=== PATIENT | male | born 1975 | race African-American/Black ===

== ENCOUNTER 2018-09-30 18:29 | Inpatient (IN) ==
[2018-09-30 19:13] LABS: Basophils # 0.1 10*3/uL (0.0-0.2); Basophils % 0.7 % (0.0-0.8); Eosinophils # 0.1 10*3/uL (0.0-0.87); Eosinophils % 1.1 % (0.00-10.9); Hematocrit 39.2 VOL% (42.0-52.0); Immature Granulocytes % 0.4 %; Immature Granulocytes Absolute 0.03 #; Lymphocytes % 24.4 % (21.2-54.2); Mean Corpuscular HGB Conc 33.2 GM/DL (32-36); Mean Corpuscular Volume 83.6 FL (87-102); Mean Platelet Volume 11.1 FL (9.6-12.0); Monocytes % 7.4 % (1.7-12.7); Platelet Count 262 T/CUMM (130-400); Red Blood Count 4.69 MC/CUMM (3.8-5.5); Red Cell Distribution Width 13.3 % (9.3-17.3); White Blood Count 8.3 T/CUMM (4-12)
[2018-09-30 19:31] LABS: Albumin 3.5 G/DL (3.4-5.0); Calcium 9.2 MG/DL (8.5-10.1); Osmolality,Calculated 294.5 MOS/KG (273-304); Total Protein 7.3 G/DL (6.4-8.3)
[2018-09-30] MEDS ORDERED: FUROSEMIDE 40 MG/4 ML VIAL IV STA (19:35)
[2018-09-30] MEDS ORDERED: DEXTROSE 50% 25 GM/50 ML SYRINGE IV PRN (21:48)
[2018-09-30] MEDS ORDERED: GLUCAGON 1 MG VIAL IM PRN (21:48)
[2018-09-30] MEDS ORDERED: SODIUM CHLORIDE 0.9% 1,000 ML IV SCH (22:00)
[2018-09-30] MEDS ORDERED: CETIRIZINE 10 MG TABLET PO PRN (22:26)
[2018-09-30] MEDS: ENOXAPARIN 30 MG/0.3 ML SYRINGE SUBCUT SCH (22:59)
[2018-09-30] MEDS: ATORVASTATIN 40 MG TABLET PO SCH (23:58)
[2018-10-01] MEDS: LEVALBUTEROL 1.25 MG/3 ML NEB RESP TX SCH ×4 (00:25→20:38)
[2018-10-01] MEDS: POTASSIUM CHLORIDE 20 MEQ TABLET PO PRN ×6 (01:08→21:36)
[2018-10-01] MEDS: CARVEDILOL 12.5 MG TABLET PO SCH ×3 (02:25→16:03)
[2018-10-01 07:44] LABS: Albumin 2.9 G/DL (3.4-5.0); Bilirubin,Total 0.7 MG/DL (0.2-1.0); Calcium 8.3 MG/DL (8.5-10.1); Osmolality,Calculated 295.8 MOS/KG (273-304); Risk Ratio 5.09; Total Protein 6.3 G/DL (6.4-8.3); VLDL CHOLESTEROL 102.6 MG/DL
[2018-10-01] MEDS ORDERED: CARVEDILOL 12.5 MG TABLET PO SCH (08:00)
[2018-10-01] MEDS: BUMETANIDE 1 MG TABLET PO SCH ×2 (08:37→21:05)
[2018-10-01] MEDS: glipiZIDE 10 MG TABLET PO SCH ×3 (08:37→16:02)
[2018-10-01] MEDS: MINOXIDIL 2.5 MG TABLET PO SCH ×2 (08:38→08:41)
[2018-10-01] MEDS: INSULIN REGULAR 100 UNIT/ML SUBCUT SCH ×4 (08:46→21:04)
[2018-10-01] MEDS ORDERED: Acarbose 100 MG PO SCH (09:00)
[2018-10-01] MEDS ORDERED: LOSARTAN/HCTZ 50-12.5 MG TABLET PO SCH (09:00)
[2018-10-01 16:29] LABS: Apearance,Urine Slightly Hazy (Clear); Bacteria,Urine Occasional /HPF (Few); Bilirubin,Urine Negative (Negative); Blood, Urine Negative (Negative); Glucose,Urine (UA) 50 mg/dL (Negative); Hyaline Casts,Urine 57 /LPF (0-3); Ketones,Urine Negative (Negative); Mucus,Urine Occasional /LPF (Occasional); Nitrite,Urine Negative (Negative); Protein,Urine >=500 MG/DL; RBC,Urine 1 /HPF (0-4); Squamous Epithelial Cell,Urine Occasional /HPF (0-10); Urine Color Yellow (Yellow); Urine Specific Gravity 1.015 (1.001-1.035); Urine Urobilinogen < 2.0 EU/DL (0.2-1.0); WBC,Urine 8 /HPF (0-6)
[2018-10-01] MEDS: ENOXAPARIN 30 MG/0.3 ML SYRINGE SUBCUT SCH (21:04)
[2018-10-01] MEDS: ATORVASTATIN 40 MG TABLET PO SCH (21:05)
[2018-10-02] MEDS: LEVALBUTEROL 1.25 MG/3 ML NEB RESP TX SCH ×4 (02:31→19:59)
[2018-10-02 05:03] LABS: Calcium 8.3 MG/DL (8.5-10.1); Osmolality,Calculated 294.7 MOS/KG (273-304)
[2018-10-02] MEDS: POTASSIUM CHLORIDE 20 MEQ TABLET PO PRN ×2 (06:17→08:59)
[2018-10-02] MEDS: BUMETANIDE 1 MG TABLET PO SCH ×2 (08:58→21:34)
[2018-10-02] MEDS: INSULIN REGULAR 100 UNIT/ML SUBCUT SCH ×4 (08:58→21:33)
[2018-10-02] MEDS: CARVEDILOL 12.5 MG TABLET PO SCH ×2 (08:59→17:08)
[2018-10-02] MEDS: glipiZIDE 10 MG TABLET PO SCH ×3 (08:59→17:08)
[2018-10-02] MEDS: ENOXAPARIN 30 MG/0.3 ML SYRINGE SUBCUT SCH (21:33)
[2018-10-02] MEDS: ATORVASTATIN 40 MG TABLET PO SCH (21:34)
[2018-10-03] MEDS: LEVALBUTEROL 1.25 MG/3 ML NEB RESP TX SCH ×2 (01:54→07:46)
[2018-10-03 06:06] LABS: Calcium 8.4 MG/DL (8.5-10.1); Osmolality,Calculated 300.8 MOS/KG (273-304)
[2018-10-03] MEDS: POTASSIUM CHLORIDE 20 MEQ TABLET PO PRN ×2 (06:55→09:04)
[2018-10-03] MEDS: glipiZIDE 10 MG TABLET PO SCH (09:04)
[2018-10-03] MEDS: BUMETANIDE 1 MG TABLET PO SCH (09:04)
[2018-10-03] MEDS: CARVEDILOL 12.5 MG TABLET PO SCH (09:04)
[2018-10-03] MEDS: INSULIN REGULAR 100 UNIT/ML SUBCUT SCH (09:04)
[2018-10-03 10:07] VITALS: BP 149/90
== END 2018-10-03 11:13 | disposition home or self-care (01) | DRG 683 ==
LOC: N.EDINP 18:29 → N.ED 18:29 → N.TELES 20:37
PROVIDERS: ADMIT Internal Medicine; ATTEND Internal Medicine

== ENCOUNTER 2022-02-13 11:52 | Observation (INO) ==
[2022-02-13] MEDS ORDERED: KETAMINE 500 MG/10 ML VIAL ONE (12:38)
[2022-02-13] MEDS ORDERED: SODIUM CHLORIDE 0.9% 250 ML IV ONE ×2 (12:38→15:23)
[2022-02-13] MEDS ORDERED: fentaNYL 100 MCG/2 ML VIAL ONE (12:38)
[2022-02-13] MEDS ORDERED: MIDAZOLAM 2 MG/2 ML VIAL ONE (12:38)
[2022-02-13] MEDS ORDERED: LIDOCAINE 2% 5 ML VIAL ONE (12:38)
[2022-02-13] MEDS ORDERED: propofoL 200 MG/20 ML VIAL IV ONE ×2 (12:38→15:23)
[2022-02-13] MEDS ORDERED: DIAZEPAM 5 MG TABLET PO ONE (12:48)
[2022-02-13] MEDS ORDERED: FAMOTIDINE 20 MG TABLET PO ONE (12:48)
[2022-02-13] MEDS ORDERED: SODIUM CHLORIDE 0.9% 250 ML IV SCH (13:00)
[2022-02-13] MEDS ORDERED: BUPIVACAINE MPF 0.25% 10 ML VIAL ONE (13:22)
[2022-02-13] MEDS ORDERED: LIDOCAINE 2%/EPI 20 ML VIAL ONE (13:23)
[2022-02-13] MEDS ORDERED: HEPARIN 5,000 UNIT/1 ML VIAL ONE (13:23)
[2022-02-13] MEDS ORDERED: ROCURONIUM 50 MG/5 ML VIAL IV ONE (15:23)
[2022-02-13] MEDS ORDERED: SUCCINYLCHOLINE 200 MG/10 ML VIAL ONE (15:23)
[2022-02-13] MEDS ORDERED: PHENYLEPHRINE 1 MG/10 ML SYRINGE IV ONE (15:30)
[2022-02-13] MEDS ORDERED: TISSUE ADHESIVE 1 EACH APPLICATOR TOP ONE (15:41)
[2022-02-13] MEDS ORDERED: hydrALAZINE 20 MG/1 ML VIAL ONE (16:26)
[2022-02-13] MEDS ORDERED: hydrALAZINE 20 MG/1 ML VIAL IM ONE (16:28)
[2022-02-13] MEDS ORDERED: hydrALAZINE 20 MG/1 ML VIAL IV ONE (16:41)
[2022-02-13] MEDS ORDERED: hydrALAZINE 20 MG/1 ML VIAL IV STA (17:22)
[2022-02-13] MEDS ORDERED: amLODIPine 10 MG TABLET PO STA (17:27)
[2022-02-13] MEDS ORDERED: amLODIPine 5 MG TABLET ONE (17:34)
[2022-02-13] MEDS ORDERED: amLODIPine 5 MG TABLET PO STA (17:40)
[2022-02-13] MEDS ORDERED: cloNIDine 0.1 MG/24 HR PATCH TRANSDERM STA (18:17)
[2022-02-13] MEDS ORDERED: MAGNESIUM SULF RIDER 4 GM/100 ML PREMIX IV PRN (19:12)
[2022-02-13] MEDS ORDERED: ACETAMINOPHEN 325 MG TABLET PO PRN (19:12)
[2022-02-13] MEDS ORDERED: ONDANSETRON 4 MG/2 ML VIAL IV PRN (19:12)
[2022-02-13] MEDS ORDERED: MAGNESIUM SULF RIDER 2 GM/50 ML PREMIX IV PRN (19:12)
[2022-02-13] MEDS ORDERED: DEXTROSE 10% 250 ML BAG IV PRN (19:15)
[2022-02-13] MEDS ORDERED: GLUCAGON 1 MG VIAL IM PRN (19:15)
[2022-02-13 20:38] LABS: Basophils # 0.1 10*3/uL (0.0-0.2); Basophils % 0.6 % (0.0-0.8); Eosinophils % 0.3 % (0.00-10.9); Hematocrit 29.1 VOL% (42.0-52.0); Hemoglobin 9.3 GM/DL (14.0-18.0); Immature Granulocytes % 0.6 %; Immature Granulocytes Absolute 0.06 #; Lymphocytes # 1.1 10*3/uL (1.4-4.0); Lymphocytes % 10.4 % (21.2-54.2); Mean Corpuscular Volume 89.3 FL (87-102); Monocytes # 0.8 10*3/uL (0.11-0.8); Monocytes % 7.4 % (1.7-12.7); Neutrophils % 80.7 % (38.7-73.9); Platelet Count 203 T/CUMM (130-400); Red Blood Count 3.26 MC/CUMM (3.8-5.5); Red Cell Distribution Width 14.9 % (9.3-17.3); White Blood Count 10.8 T/CUMM (4-12)
[2022-02-13 20:59] LABS: Bilirubin,Total 0.4 MG/DL (0.20-1.00); Calcium 8.2 MG/DL (8.5-10.1); Osmolality,Calculated 310.4 MOS/KG (273-304); Potassium 3.7 MMOL/L (3.5-5.1); Total Protein 7.3 G/DL (6.4-8.2)
[2022-02-13] MEDS: INSULIN LISPRO 100 UNIT/ML SUBCUT SCH (21:49)
[2022-02-13] MEDS: INSULIN NPH 100 UNIT/ML SUBCUT SCH (21:49)
[2022-02-13] MEDS: BUMETANIDE 1 MG TABLET PO SCH (21:50)
[2022-02-13] MEDS: POTASSIUM CHLORIDE 20 MEQ TABLET PO SCH (21:50)
[2022-02-13] MEDS: metOLazone 5 MG TABLET PO SCH (21:50)
[2022-02-13] MEDS: DOCUSATE SODIUM 100 MG CAPSULE PO SCH (21:51)
[2022-02-13] MEDS: ATORVASTATIN 40 MG TABLET PO SCH (21:51)
[2022-02-14 07:31] LABS: Basophils # 0.1 10*3/uL (0.0-0.2); Basophils % 0.7 % (0.0-0.8); Eosinophils # 0.1 10*3/uL (0.0-0.87); Eosinophils % 1.3 % (0.00-10.9); Hematocrit 26.5 VOL% (42.0-52.0); Hemoglobin 8.3 GM/DL (14.0-18.0); Immature Granulocytes % 0.4 %; Immature Granulocytes Absolute 0.04 #; Lymphocytes # 1.5 10*3/uL (1.4-4.0); Lymphocytes % 14.9 % (21.2-54.2); Mean Corpuscular HGB Conc 31.3 GM/DL (32-36); Mean Corpuscular Volume 90.1 FL (87-102); Mean Platelet Volume 11.8 FL (9.6-12.0); Monocytes % 9.6 % (1.7-12.7); Neutrophils % 73.1 % (38.7-73.9); Platelet Count 211 T/CUMM (130-400); Red Blood Count 2.94 MC/CUMM (3.8-5.5); Red Cell Distribution Width 14.7 % (9.3-17.3)
[2022-02-14 07:57] LABS: Albumin 2.7 G/DL (3.4-5.0); Bilirubin,Total 0.4 MG/DL (0.20-1.00); Calcium 8.1 MG/DL (8.5-10.1); Osmolality,Calculated 305.4 MOS/KG (273-304); Potassium 3.7 MMOL/L (3.5-5.1)
[2022-02-14] MEDS: DOCUSATE SODIUM 100 MG CAPSULE PO SCH ×2 (08:27→23:29)
[2022-02-14] MEDS: POTASSIUM CHLORIDE 20 MEQ TABLET PO SCH ×3 (08:27→23:30)
[2022-02-14] MEDS: INSULIN LISPRO 100 UNIT/ML SUBCUT SCH ×4 (08:27→23:29)
[2022-02-14] MEDS: GABAPENTIN 300 MG CAPSULE PO SCH (08:27)
[2022-02-14] MEDS: metOLazone 5 MG TABLET PO SCH ×2 (08:28→23:30)
[2022-02-14] MEDS: PANTOPRAZOLE 40 MG TABLET PO SCH (08:28)
[2022-02-14] MEDS: BUMETANIDE 1 MG TABLET PO SCH ×2 (08:29→23:30)
[2022-02-14] MEDS: NON-FORMULARY MEDICATION (Liraglutide [Victoza 2-Pak] 0.6 mg/0.1 mL (18 mg/3 mL) Pen Injec SUBCUT SCH (08:29)
[2022-02-14] MEDS: INSULIN NPH 100 UNIT/ML SUBCUT SCH ×2 (08:29→23:30)
[2022-02-14] MEDS ORDERED: amLODIPine 10 MG TABLET PO SCH (09:00)
[2022-02-14] MEDS: carvediloL 6.25 MG TABLET PO SCH ×2 (13:09→23:29)
[2022-02-14] MEDS ORDERED: HEPARIN 10,000 UNIT/10 ML VIAL IV SCH (16:15)
[2022-02-14] MEDS: ATORVASTATIN 40 MG TABLET PO SCH (23:30)
[2022-02-15 06:05] LABS: Basophils # 0.1 10*3/uL (0.0-0.2); Basophils % 0.9 % (0.0-0.8); Eosinophils # 0.2 10*3/uL (0.0-0.87); Hematocrit 26.4 VOL% (42.0-52.0); Hemoglobin 8.4 GM/DL (14.0-18.0); Immature Granulocytes % 0.4 %; Immature Granulocytes Absolute 0.03 #; Lymphocytes # 1.5 10*3/uL (1.4-4.0); Lymphocytes % 18.6 % (21.2-54.2); Mean Corpuscular HGB Conc 31.8 GM/DL (32-36); Mean Corpuscular Volume 89.2 FL (87-102); Mean Platelet Volume 10.7 FL (9.6-12.0); Monocytes # 0.8 10*3/uL (0.11-0.8); Monocytes % 10.3 % (1.7-12.7); Neutrophils % 67.8 % (38.7-73.9); Platelet Count 186 T/CUMM (130-400); Red Blood Count 2.96 MC/CUMM (3.8-5.5); Red Cell Distribution Width 14.7 % (9.3-17.3); White Blood Count 8.1 T/CUMM (4-12)
[2022-02-15 06:39] LABS: Osmolality,Calculated 303.4 MOS/KG (273-304); Potassium 3.6 MMOL/L (3.5-5.1)
[2022-02-15 06:41] LABS: Risk Ratio 3.68
[2022-02-15] MEDS ORDERED: ISOSORBIDE MONONITRATE 30 MG TABLET PO SCH (09:00)
[2022-02-15] MEDS ORDERED: amLODIPine 5 MG TABLET PO SCH (09:00)
[2022-02-15] MEDS ORDERED: ASPIRIN EC 81 MG TABLET PO SCH (09:00)
[2022-02-15] MEDS ORDERED: carvediloL 12.5 MG TABLET PO SCH (09:00)
[2022-02-15] MEDS: metOLazone 5 MG TABLET PO SCH (09:14)
[2022-02-15] MEDS: BUMETANIDE 1 MG TABLET PO SCH (09:14)
[2022-02-15] MEDS: POTASSIUM CHLORIDE 20 MEQ TABLET PO SCH (09:14)
[2022-02-15] MEDS: GABAPENTIN 300 MG CAPSULE PO SCH (09:14)
[2022-02-15] MEDS: INSULIN NPH 100 UNIT/ML SUBCUT SCH (09:14)
[2022-02-15] MEDS: PANTOPRAZOLE 40 MG TABLET PO SCH (09:14)
[2022-02-15] MEDS: DOCUSATE SODIUM 100 MG CAPSULE PO SCH (09:14)
[2022-02-15] MEDS: NON-FORMULARY MEDICATION (Liraglutide [Victoza 2-Pak] 0.6 mg/0.1 mL (18 mg/3 mL) Pen Injec SUBCUT SCH (09:14)
[2022-02-15] MEDS: INSULIN LISPRO 100 UNIT/ML SUBCUT SCH (09:15)
[2022-02-15] MEDS ORDERED: GLUCAGON 1 MG VIAL IM PRN (10:35)
[2022-02-15] MEDS ORDERED: DEXTROSE 10% 250 ML BAG IV PRN (10:37)
[2022-02-15 11:29] VITALS: BP 143/71
[2022-02-15] MEDS ORDERED: HEPARIN 10,000 UNIT/10 ML VIAL IV PRN (13:28)
== END 2022-02-15 17:14 | disposition home or self-care (01) ==
LOC: N.OR 11:53 → N.SDSINP 11:53 → N.2W 19:41
PROVIDERS: ADMIT Student in an Organized Health Care Education/Training Program; ATTEND Student in an Organized Health Care Education/Training Program

== ENCOUNTER 2022-02-26 08:24 | Inpatient (IN) ==
[2022-02-26] MEDS ORDERED: FUROSEMIDE 40 MG/4 ML VIAL IV STA (08:41)
[2022-02-26 08:58] LABS: Basophils % 0.4 % (0.0-0.8); Eosinophils % 0.1 % (0.00-10.9); Hematocrit 27.4 VOL% (42.0-52.0); Hemoglobin 8.4 GM/DL (14.0-18.0); Immature Granulocytes % 0.6 %; Immature Granulocytes Absolute 0.06 #; Lymphocytes # 0.9 10*3/uL (1.4-4.0); Lymphocytes % 8.5 % (21.2-54.2); Mean Corpuscular HGB Conc 30.7 GM/DL (32-36); Mean Corpuscular Volume 92.3 FL (87-102); Mean Platelet Volume 11.1 FL (9.6-12.0); Monocytes # 0.7 10*3/uL (0.11-0.8); Monocytes % 6.8 % (1.7-12.7); Neutrophils % 83.6 % (38.7-73.9); Platelet Count 226 T/CUMM (130-400); Red Blood Count 2.97 MC/CUMM (3.8-5.5); Red Cell Distribution Width 14.7 % (9.3-17.3); White Blood Count 10.6 T/CUMM (4-12)
[2022-02-26 09:08] LABS: Arterial Base Excess iSTAT 3 MMOL/L (-2.5-2.5); Arterial Bicarbonate iSTAT 27.9 MMOL/L (20-26); Arterial O2 Saturation iSTAT 92 % (95-100); Arterial PCO2 iSTAT 42 MM HG (35-48); Arterial PO2 iSTAT 63 MM HG (80-95); Arterial Total CO2 iSTAT 29 MMO/L (23-27); Arterial pH iSTAT 7.426 (7.35-7.45)
[2022-02-26 09:17] LABS: INR 1.1; PT Patient Result 11.8 SECS (10.1-12.1); Partial Thromboplastin Time 29.3 SECS (23.7-32.9)
[2022-02-26 09:19] LABS: Albumin 2.9 G/DL (3.4-5.0); Bilirubin,Total 0.7 MG/DL (0.20-1.00); Calcium 8.4 MG/DL (8.5-10.1); Osmolality,Calculated 297.8 MOS/KG (273-304); Potassium 5.3 MMOL/L (3.5-5.1); Total Protein 6.8 G/DL (6.4-8.2)
[2022-02-26] MEDS ORDERED: HEPARIN 10,000 UNIT/10 ML VIAL IV SCH (12:30)
[2022-02-26] MEDS ORDERED: DEXTROSE 10% 250 ML BAG IV PRN (13:36)
[2022-02-26] MEDS ORDERED: GLUCAGON 1 MG VIAL IM PRN (13:36)
[2022-02-26] MEDS ORDERED: ONDANSETRON 4 MG/2 ML VIAL IV PRN (13:36)
[2022-02-26] MEDS ORDERED: INFLUENZA VIRUS VACCINE 0.5 ML SYRINGE IM ONE (14:47)
[2022-02-26] MEDS ORDERED: BENZONATATE 100 MG CAPSULE PO PRN (15:16)
[2022-02-26] MEDS ORDERED: cloNIDine 0.1 MG TABLET PO PRN (15:27)
[2022-02-26] MEDS ORDERED: hydrALAZINE 20 MG/1 ML VIAL IV ONE (15:28)
[2022-02-26] MEDS ORDERED: ALBUTEROL 2.5 MG/3 ML NEB RESP TX PRN (15:30)
[2022-02-26] MEDS: INSULIN LISPRO 100 UNIT/ML SUBCUT SCH ×2 (15:45→20:32)
[2022-02-26] MEDS: ACETAMINOPHEN 325 MG TABLET PO PRN ×2 (15:45→20:31)
[2022-02-26 15:46] LABS: Bilirubin,Urine Negative (Negative); Blood, Urine Small mg/dL (Negative); Glucose,Urine (UA) 100 mg/dL (Negative); Ketones,Urine Negative (Negative); Nitrite,Urine Negative (Negative); Protein,Urine >=300 mg/dL (Negative); Urine Appearance Clear (Clear); Urine Color Yellow (Yellow); Urine Urobilinogen 0.2 eU/dL (<2.0); Urine pH 7.5 (4.5-8.0)
[2022-02-26 15:48] LABS: Mucus,Urine Occasional /LPF (Occasional); RBC,Urine 6 /HPF (0-4)
[2022-02-26] MEDS: cefTRIAXone 1,000 MG in SODIUM CHLORIDE 0.9% 100 ML IV SCH (15:52)
[2022-02-26 16:08] LABS: Barbiturates Screen,Urine Negative (Negative); Benzodiazepines Screen,Urine Negative (Negative); Cannabinoid Screen,Urine Negative (Negative); Opiate Screen,Urine Negative (Negative); Phencyclidine Screen,Urine Negative (Negative)
[2022-02-26] MEDS ORDERED: VANCOMYCIN INJ 1,000 MG in SODIUM CHLORIDE 0.9% 250 ML IV ONE (16:30)
[2022-02-26] MEDS: ALBUTEROL/IPRATROPIUM 3 ML NEB RESP TX SCH (19:21)
[2022-02-26] MEDS: DOCUSATE SODIUM 100 MG CAPSULE PO SCH (20:31)
[2022-02-26] MEDS: BUMETANIDE 1 MG TABLET PO SCH (20:31)
[2022-02-26] MEDS: ATORVASTATIN 40 MG TABLET PO SCH (20:31)
[2022-02-26] MEDS: carvediloL 25 MG TABLET PO SCH (20:32)
[2022-02-26] MEDS: INSULIN NPH 100 UNIT/ML SUBCUT SCH (20:32)
[2022-02-26] MEDS: metOLazone 5 MG TABLET PO SCH (20:32)
[2022-02-27] MEDS: ALBUTEROL/IPRATROPIUM 3 ML NEB RESP TX SCH ×4 (00:23→19:08)
[2022-02-27 05:10] LABS: Basophils # 0.1 10*3/uL (0.0-0.2); Basophils % 0.6 % (0.0-0.8); Eosinophils # 0.1 10*3/uL (0.0-0.87); Hematocrit 27.4 VOL% (42.0-52.0); Hemoglobin 8.5 GM/DL (14.0-18.0); Immature Granulocytes % 0.4 %; Immature Granulocytes Absolute 0.03 #; Lymphocytes # 1.2 10*3/uL (1.4-4.0); Lymphocytes % 14.8 % (21.2-54.2); Mean Corpuscular Volume 91.3 FL (87-102); Mean Platelet Volume 11.4 FL (9.6-12.0); Monocytes % 12.5 % (1.7-12.7); Neutrophils % 70.7 % (38.7-73.9); Platelet Count 198 T/CUMM (130-400); Red Cell Distribution Width 14.6 % (9.3-17.3); White Blood Count 8.2 T/CUMM (4-12)
[2022-02-27 05:37] LABS: Albumin 2.7 G/DL (3.4-5.0); Bilirubin,Total 0.7 MG/DL (0.20-1.00); Calcium 8.3 MG/DL (8.5-10.1); Osmolality,Calculated 296.7 MOS/KG (273-304); Potassium 4.4 MMOL/L (3.5-5.1)
[2022-02-27] MEDS: INSULIN NPH 100 UNIT/ML SUBCUT SCH ×2 (08:48→22:22)
[2022-02-27] MEDS: INSULIN LISPRO 100 UNIT/ML SUBCUT SCH ×4 (08:48→22:21)
[2022-02-27] MEDS: AZITHROMYCIN 250 MG TABLET PO SCH (08:50)
[2022-02-27] MEDS: BUMETANIDE 1 MG TABLET PO SCH ×2 (08:50→22:19)
[2022-02-27] MEDS: DOCUSATE SODIUM 100 MG CAPSULE PO SCH ×2 (08:50→22:52)
[2022-02-27] MEDS: PANTOPRAZOLE 40 MG TABLET PO SCH (08:50)
[2022-02-27] MEDS: GABAPENTIN 300 MG CAPSULE PO SCH (08:50)
[2022-02-27] MEDS: ISOSORBIDE MONONITRATE 30 MG TABLET PO SCH (08:50)
[2022-02-27] MEDS ORDERED: VANCOMYCIN INJ 1,250 MG in SODIUM CHLORIDE 0.9% 250 ML IV PRN (08:52)
[2022-02-27] MEDS ORDERED: LIRAGLUTIDE SUBCUT SCH (09:00)
[2022-02-27] MEDS: ENOXAPARIN 30 MG/0.3 ML SYRINGE SUBCUT SCH (13:03)
[2022-02-27] MEDS: carvediloL 25 MG TABLET PO SCH ×2 (13:04→22:19)
[2022-02-27] MEDS: metOLazone 5 MG TABLET PO SCH ×2 (13:04→22:19)
[2022-02-27] MEDS: cefTRIAXone 1,000 MG in SODIUM CHLORIDE 0.9% 100 ML IV SCH (16:31)
[2022-02-27] MEDS ORDERED: VANCOMYCIN INJ 1,250 MG in SODIUM CHLORIDE 0.9% 250 ML IV ONE (17:00)
[2022-02-27] MEDS: ACETAMINOPHEN 325 MG TABLET PO PRN (18:33)
[2022-02-27] MEDS: ATORVASTATIN 40 MG TABLET PO SCH (22:19)
[2022-02-27] MEDS: traMADol 50 MG TABLET PO PRN (22:20)
[2022-02-28] MEDS: ALBUTEROL/IPRATROPIUM 3 ML NEB RESP TX SCH ×4 (00:20→19:22)
[2022-02-28] MEDS: ACETAMINOPHEN 325 MG TABLET PO PRN (05:40)
[2022-02-28] MEDS: GABAPENTIN 300 MG CAPSULE PO SCH (08:16)
[2022-02-28] MEDS: ISOSORBIDE MONONITRATE 30 MG TABLET PO SCH (08:16)
[2022-02-28] MEDS: AZITHROMYCIN 250 MG TABLET PO SCH (08:16)
[2022-02-28] MEDS: PANTOPRAZOLE 40 MG TABLET PO SCH (08:16)
[2022-02-28] MEDS: INSULIN NPH 100 UNIT/ML SUBCUT SCH ×2 (08:17→21:13)
[2022-02-28] MEDS: INSULIN LISPRO 100 UNIT/ML SUBCUT SCH ×4 (08:17→21:12)
[2022-02-28] MEDS ORDERED: MECLIZINE 25 MG TABLET PO PRN (08:45)
[2022-02-28] MEDS: DOCUSATE SODIUM 100 MG CAPSULE PO SCH ×2 (10:00→21:12)
[2022-02-28] MEDS: metOLazone 5 MG TABLET PO SCH ×2 (10:00→21:12)
[2022-02-28] MEDS: BUMETANIDE 1 MG TABLET PO SCH ×2 (10:00→21:12)
[2022-02-28] MEDS: carvediloL 25 MG TABLET PO SCH ×2 (10:00→21:12)
[2022-02-28] MEDS: ENOXAPARIN 30 MG/0.3 ML SYRINGE SUBCUT SCH (13:57)
[2022-02-28] MEDS: BENZONATATE 100 MG CAPSULE PO SCH ×2 (15:43→21:12)
[2022-02-28] MEDS: cefTRIAXone 1,000 MG in SODIUM CHLORIDE 0.9% 100 ML IV SCH (15:43)
[2022-02-28] MEDS ORDERED: VANCOMYCIN INJ 1,250 MG in SODIUM CHLORIDE 0.9% 250 ML IV ONE (17:00)
[2022-02-28] MEDS: ATORVASTATIN 40 MG TABLET PO SCH (21:12)
[2022-02-28] MEDS: traMADol 50 MG TABLET PO PRN (23:05)
[2022-03-01] MEDS: ALBUTEROL/IPRATROPIUM 3 ML NEB RESP TX SCH ×4 (00:10→19:45)
[2022-03-01] MEDS: traMADol 50 MG TABLET PO PRN (04:44)
[2022-03-01 05:28] LABS: Basophils # 0.1 10*3/uL (0.0-0.2); Basophils % 0.5 % (0.0-0.8); Eosinophils # 0.2 10*3/uL (0.0-0.87); Eosinophils % 2.4 % (0.00-10.9); Hematocrit 25.5 VOL% (42.0-52.0); Hemoglobin 7.9 GM/DL (14.0-18.0); Immature Granulocytes % 0.8 %; Immature Granulocytes Absolute 0.08 #; Lymphocytes % 19.6 % (21.2-54.2); Mean Corpuscular Volume 90.7 FL (87-102); Mean Platelet Volume 11.6 FL (9.6-12.0); Monocytes # 1.4 10*3/uL (0.11-0.8); Monocytes % 13.5 % (1.7-12.7); Neutrophils % 63.2 % (38.7-73.9); Platelet Count 212 T/CUMM (130-400); Red Blood Count 2.81 MC/CUMM (3.8-5.5); Red Cell Distribution Width 14.3 % (9.3-17.3); White Blood Count 10.1 T/CUMM (4-12)
[2022-03-01 05:46] LABS: Calcium 8.2 MG/DL (8.5-10.1)
[2022-03-01] MEDS: GABAPENTIN 300 MG CAPSULE PO SCH (08:40)
[2022-03-01] MEDS: carvediloL 25 MG TABLET PO SCH ×2 (08:40→21:37)
[2022-03-01] MEDS: PANTOPRAZOLE 40 MG TABLET PO SCH (08:40)
[2022-03-01] MEDS: ENOXAPARIN 30 MG/0.3 ML SYRINGE SUBCUT SCH ×2 (08:40→12:05)
[2022-03-01] MEDS: AZITHROMYCIN 250 MG TABLET PO SCH (08:40)
[2022-03-01] MEDS: ISOSORBIDE MONONITRATE 30 MG TABLET PO SCH (08:40)
[2022-03-01] MEDS: BENZONATATE 100 MG CAPSULE PO SCH ×3 (08:40→21:38)
[2022-03-01] MEDS: BUMETANIDE 1 MG TABLET PO SCH ×2 (08:40→21:35)
[2022-03-01] MEDS: metOLazone 5 MG TABLET PO SCH ×2 (08:40→21:37)
[2022-03-01] MEDS: INSULIN LISPRO 100 UNIT/ML SUBCUT SCH ×4 (08:41→21:38)
[2022-03-01] MEDS: INSULIN NPH 100 UNIT/ML SUBCUT SCH ×2 (08:41→21:38)
[2022-03-01] MEDS: DOCUSATE SODIUM 100 MG CAPSULE PO SCH ×2 (09:30→21:43)
[2022-03-01] MEDS: cefTRIAXone 1,000 MG in SODIUM CHLORIDE 0.9% 100 ML IV SCH (16:17)
[2022-03-01] MEDS ORDERED: COLCHICINE 0.6 MG CAPSULE PO PRN (16:43)
[2022-03-01] MEDS: ATORVASTATIN 40 MG TABLET PO SCH (21:37)
[2022-03-02] MEDS: traMADol 50 MG TABLET PO PRN (00:02)
[2022-03-02] MEDS: ACETAMINOPHEN 325 MG TABLET PO PRN ×2 (00:03→21:16)
[2022-03-02] MEDS: ALBUTEROL/IPRATROPIUM 3 ML NEB RESP TX SCH ×4 (00:56→18:51)
[2022-03-02] MEDS: DOCUSATE SODIUM 100 MG CAPSULE PO SCH ×2 (09:09→21:18)
[2022-03-02] MEDS: GABAPENTIN 300 MG CAPSULE PO SCH (09:11)
[2022-03-02] MEDS: INSULIN LISPRO 100 UNIT/ML SUBCUT SCH ×4 (09:11→21:18)
[2022-03-02] MEDS: AZITHROMYCIN 250 MG TABLET PO SCH (09:11)
[2022-03-02] MEDS: BENZONATATE 100 MG CAPSULE PO SCH ×3 (09:11→21:17)
[2022-03-02] MEDS: ENOXAPARIN 30 MG/0.3 ML SYRINGE SUBCUT SCH (09:11)
[2022-03-02] MEDS: INSULIN NPH 100 UNIT/ML SUBCUT SCH ×2 (09:11→21:18)
[2022-03-02] MEDS: PANTOPRAZOLE 40 MG TABLET PO SCH (09:12)
[2022-03-02] MEDS ORDERED: methylPREDNISolone SOD SUC 40 MG/1 ML VIAL IV ONE (10:09)
[2022-03-02] MEDS: ISOSORBIDE MONONITRATE 30 MG TABLET PO SCH (13:17)
[2022-03-02] MEDS: BUMETANIDE 1 MG TABLET PO SCH ×2 (13:17→21:17)
[2022-03-02] MEDS: carvediloL 25 MG TABLET PO SCH ×2 (13:18→21:17)
[2022-03-02] MEDS: metOLazone 5 MG TABLET PO SCH ×2 (13:18→21:17)
[2022-03-02] MEDS ORDERED: VANCOMYCIN INJ 1,250 MG in SODIUM CHLORIDE 0.9% 250 ML IV ONE (17:00)
[2022-03-02] MEDS: cefTRIAXone 1,000 MG in SODIUM CHLORIDE 0.9% 100 ML IV SCH (17:03)
[2022-03-02] MEDS: allopurinoL 300 MG TABLET PO SCH (17:05)
[2022-03-02] MEDS: ATORVASTATIN 40 MG TABLET PO SCH (21:17)
[2022-03-03] MEDS: ALBUTEROL/IPRATROPIUM 3 ML NEB RESP TX SCH ×4 (07:05→18:50)
[2022-03-03] MEDS: INSULIN LISPRO 100 UNIT/ML SUBCUT SCH ×4 (08:07→20:46)
[2022-03-03] MEDS: INSULIN NPH 100 UNIT/ML SUBCUT SCH ×2 (08:07→20:46)
[2022-03-03] MEDS: BENZONATATE 100 MG CAPSULE PO SCH ×3 (08:07→20:47)
[2022-03-03] MEDS: AZITHROMYCIN 250 MG TABLET PO SCH (08:08)
[2022-03-03] MEDS: BUMETANIDE 1 MG TABLET PO SCH ×2 (08:08→20:47)
[2022-03-03] MEDS: DOCUSATE SODIUM 100 MG CAPSULE PO SCH ×2 (08:08→20:47)
[2022-03-03] MEDS: PANTOPRAZOLE 40 MG TABLET PO SCH (08:08)
[2022-03-03] MEDS: carvediloL 25 MG TABLET PO SCH ×2 (08:08→20:50)
[2022-03-03] MEDS: metOLazone 5 MG TABLET PO SCH ×2 (08:08→20:47)
[2022-03-03] MEDS: GABAPENTIN 300 MG CAPSULE PO SCH (08:08)
[2022-03-03] MEDS: ISOSORBIDE MONONITRATE 30 MG TABLET PO SCH (08:08)
[2022-03-03] MEDS: allopurinoL 300 MG TABLET PO SCH (08:11)
[2022-03-03] MEDS: ENOXAPARIN 30 MG/0.3 ML SYRINGE SUBCUT SCH (09:00)
[2022-03-03] MEDS: cefTRIAXone 1,000 MG in SODIUM CHLORIDE 0.9% 100 ML IV SCH (14:36)
[2022-03-03] MEDS: ATORVASTATIN 40 MG TABLET PO SCH (20:47)
[2022-03-04 05:23] LABS: Basophils # 0.1 10*3/uL (0.0-0.2); Basophils % 0.6 % (0.0-0.8); Eosinophils # 0.2 10*3/uL (0.0-0.87); Eosinophils % 1.3 % (0.00-10.9); Hematocrit 24.6 VOL% (42.0-52.0); Hemoglobin 7.6 GM/DL (14.0-18.0); Immature Granulocytes % 1.8 %; Immature Granulocytes Absolute 0.23 #; Lymphocytes # 2.5 10*3/uL (1.4-4.0); Lymphocytes % 19.7 % (21.2-54.2); Mean Corpuscular HGB Conc 30.9 GM/DL (32-36); Mean Corpuscular Volume 90.8 FL (87-102); Mean Platelet Volume 11.8 FL (9.6-12.0); Monocytes % 7.6 % (1.7-12.7); Platelet Count 262 T/CUMM (130-400); Red Blood Count 2.71 MC/CUMM (3.8-5.5); Red Cell Distribution Width 14.3 % (9.3-17.3); White Blood Count 12.7 T/CUMM (4-12)
[2022-03-04] MEDS: ALBUTEROL/IPRATROPIUM 3 ML NEB RESP TX SCH ×4 (07:17→19:12)
[2022-03-04 08:44] LABS: Calcium 8.4 MG/DL (8.5-10.1); Osmolality,Calculated 304.5 MOS/KG (273-304); Potassium 4.2 MMOL/L (3.5-5.1)
[2022-03-04] MEDS: INSULIN NPH 100 UNIT/ML SUBCUT SCH ×2 (09:41→21:35)
[2022-03-04] MEDS: INSULIN LISPRO 100 UNIT/ML SUBCUT SCH ×4 (09:43→20:50)
[2022-03-04] MEDS: metOLazone 5 MG TABLET PO SCH ×2 (10:41→20:52)
[2022-03-04] MEDS: BUMETANIDE 1 MG TABLET PO SCH ×2 (10:41→20:52)
[2022-03-04] MEDS: BENZONATATE 100 MG CAPSULE PO SCH ×3 (10:41→20:52)
[2022-03-04] MEDS: allopurinoL 300 MG TABLET PO SCH (10:42)
[2022-03-04] MEDS: DOCUSATE SODIUM 100 MG CAPSULE PO SCH ×2 (10:42→20:53)
[2022-03-04] MEDS: PANTOPRAZOLE 40 MG TABLET PO SCH (10:42)
[2022-03-04] MEDS: ISOSORBIDE MONONITRATE 30 MG TABLET PO SCH (10:42)
[2022-03-04] MEDS: GABAPENTIN 300 MG CAPSULE PO SCH (10:42)
[2022-03-04] MEDS: carvediloL 25 MG TABLET PO SCH ×2 (10:43→20:52)
[2022-03-04] MEDS: ENOXAPARIN 30 MG/0.3 ML SYRINGE SUBCUT SCH (10:46)
[2022-03-04] MEDS: cefTRIAXone 1,000 MG in SODIUM CHLORIDE 0.9% 100 ML IV SCH (15:46)
[2022-03-04] MEDS: ATORVASTATIN 40 MG TABLET PO SCH (20:52)
[2022-03-05] MEDS: ALBUTEROL/IPRATROPIUM 3 ML NEB RESP TX SCH ×2 (07:15)
[2022-03-05 07:34] VITALS: BP 143/84
[2022-03-05] MEDS: PANTOPRAZOLE 40 MG TABLET PO SCH (11:45)
[2022-03-05] MEDS: allopurinoL 300 MG TABLET PO SCH (11:45)
[2022-03-05] MEDS: GABAPENTIN 300 MG CAPSULE PO SCH (11:45)
[2022-03-05] MEDS: BENZONATATE 100 MG CAPSULE PO SCH (11:45)
[2022-03-05] MEDS: metOLazone 5 MG TABLET PO SCH (11:45)
[2022-03-05] MEDS: INSULIN NPH 100 UNIT/ML SUBCUT SCH (11:45)
[2022-03-05] MEDS: DOCUSATE SODIUM 100 MG CAPSULE PO SCH (11:46)
[2022-03-05] MEDS: ISOSORBIDE MONONITRATE 30 MG TABLET PO SCH (11:46)
[2022-03-05] MEDS: BUMETANIDE 1 MG TABLET PO SCH (11:47)
[2022-03-05] MEDS: ENOXAPARIN 30 MG/0.3 ML SYRINGE SUBCUT SCH (11:50)
[2022-03-05] MEDS ORDERED: ceFAZolin 2,000 MG/50 ML DUPLEX IV SCH ×2 (12:00→17:00)
[2022-03-05] MEDS: carvediloL 25 MG TABLET PO SCH (12:09)
[2022-03-05] MEDS: INSULIN LISPRO 100 UNIT/ML SUBCUT SCH (12:09)
== END 2022-03-05 12:59 | disposition home or self-care (01) | DRG 193 ==
LOC: N.EDINP 08:24 → N.ED 08:24 → N.EDINP 13:16 → N.2W 13:34 → N.5E 02-27 10:42
PROVIDERS: ADMIT Internal Medicine; ATTEND Internal Medicine

== ENCOUNTER 2022-03-15 09:58 | Observation (INO) ==
[2022-03-15] MEDS ORDERED: SODIUM CHLORIDE 0.9% 250 ML IV STA (11:13)
[2022-03-15] MEDS ORDERED: DILTIAZEM 25 MG/5 ML VIAL IV STA ×2 (11:39→12:07)
[2022-03-15] MEDS ORDERED: DILTIAZEM INJ 100 MG in SODIUM CHLORIDE 0.9% 100 ML IV SCH ×2 (12:00→13:30)
[2022-03-15 12:20] LABS: Basophils # 0.1 10*3/uL (0.0-0.2); Basophils % 0.9 % (0.0-0.8); Eosinophils # 0.1 10*3/uL (0.0-0.87); Eosinophils % 1.4 % (0.00-10.9); Hematocrit 27.2 VOL% (42.0-52.0); Hemoglobin 8.4 GM/DL (14.0-18.0); Immature Granulocytes % 0.8 %; Immature Granulocytes Absolute 0.06 #; Lymphocytes # 1.1 10*3/uL (1.4-4.0); Lymphocytes % 13.7 % (21.2-54.2); Mean Corpuscular HGB Conc 30.9 GM/DL (32-36); Mean Corpuscular Volume 91.6 FL (87-102); Mean Platelet Volume 11.9 FL (9.6-12.0); Monocytes # 0.8 10*3/uL (0.11-0.8); Monocytes % 10.1 % (1.7-12.7); Neutrophils % 73.1 % (38.7-73.9); Platelet Count 216 T/CUMM (130-400); Red Blood Count 2.97 MC/CUMM (3.8-5.5); White Blood Count 7.8 T/CUMM (4-12)
[2022-03-15 12:27] LABS: INR 1.1; PT Patient Result 12.3 SECS (10.1-12.1); Partial Thromboplastin Time 24.8 SECS (23.7-32.9)
[2022-03-15 12:50] LABS: Albumin 2.9 G/DL (3.4-5.0); Bilirubin,Total 0.5 MG/DL (0.20-1.00); Calcium 8.3 MG/DL (8.5-10.1); Osmolality,Calculated 293.4 MOS/KG (273-304); Potassium 4.7 MMOL/L (3.5-5.1); Thyroid Stimulating Hormone 1.49 uIU/ml (0.358-3.74); Total Protein 6.4 G/DL (6.4-8.2)
[2022-03-15] MEDS ORDERED: MAGNESIUM SULF RIDER 2 GM/50 ML PREMIX IV PRN (13:10)
[2022-03-15] MEDS ORDERED: MAGNESIUM SULF RIDER 4 GM/100 ML PREMIX IV PRN (13:10)
[2022-03-15] MEDS ORDERED: DEXTROSE 10% 250 ML BAG IV PRN (13:10)
[2022-03-15] MEDS ORDERED: MORPHINE 2 MG/1 ML SYRINGE IV PRN (13:10)
[2022-03-15] MEDS ORDERED: ONDANSETRON 4 MG/2 ML VIAL IV PRN (13:10)
[2022-03-15] MEDS ORDERED: POTASSIUM CHLORIDE 20 MEQ TABLET PO PRN (13:10)
[2022-03-15] MEDS ORDERED: GLUCAGON 1 MG VIAL IM PRN (13:10)
[2022-03-15] MEDS ORDERED: SODIUM CHLORIDE 0.45% 1,000 ML IV SCH (13:30)
[2022-03-15] MEDS ORDERED: BENZONATATE 100 MG CAPSULE PO PRN (13:53)
[2022-03-15 16:19] LABS: Barbiturates Screen,Urine Negative (Negative); Benzodiazepines Screen,Urine Negative (Negative); Cannabinoid Screen,Urine Negative (Negative); Opiate Screen,Urine Negative (Negative); Phencyclidine Screen,Urine Negative (Negative)
[2022-03-15] MEDS: INSULIN LISPRO 100 UNIT/ML SUBCUT SCH ×2 (16:48→21:28)
[2022-03-15] MEDS ORDERED: ATORVASTATIN 40 MG TABLET PO SCH (21:00)
[2022-03-15] MEDS: SODIUM BICARBONATE 650 MG TABLET PO SCH (21:27)
[2022-03-15] MEDS: BUMETANIDE 1 MG TABLET PO SCH (21:27)
[2022-03-15] MEDS: carvediloL 12.5 MG TABLET PO SCH (21:27)
[2022-03-15] MEDS: INSULIN NPH 100 UNIT/ML SUBCUT SCH (21:28)
[2022-03-16 05:52] LABS: Risk Ratio 3.94; Thyroid Stimulating Hormone 1.12 uIU/ml (0.358-3.74); VLDL Cholesterol 34.4 MG/DL
[2022-03-16] MEDS ORDERED: allopurinoL 300 MG TABLET PO SCH (09:00)
[2022-03-16] MEDS ORDERED: predniSONE 5 MG TABLET PO SCH (09:00)
[2022-03-16] MEDS ORDERED: NON-FORMULARY MEDICATION (Liraglutide [Victoza 2-Pak] 0.6 mg/0.1 mL (18 mg/3 mL) Pen Injec SUBCUT SCH (09:00)
[2022-03-16] MEDS ORDERED: ISOSORBIDE MONONITRATE 30 MG TABLET PO SCH (09:00)
[2022-03-16] MEDS ORDERED: ASCORBIC ACID 500 MG TABLET PO SCH (09:00)
[2022-03-16] MEDS ORDERED: GABAPENTIN 300 MG CAPSULE PO SCH (09:00)
[2022-03-16] MEDS ORDERED: carvediloL 12.5 MG TABLET PO ONE (09:17)
[2022-03-16] MEDS: INSULIN LISPRO 100 UNIT/ML SUBCUT SCH (10:25)
[2022-03-16] MEDS: BUMETANIDE 1 MG TABLET PO SCH (10:26)
[2022-03-16] MEDS: SODIUM BICARBONATE 650 MG TABLET PO SCH (10:26)
[2022-03-16] MEDS: INSULIN NPH 100 UNIT/ML SUBCUT SCH (10:27)
[2022-03-16] MEDS: carvediloL 12.5 MG TABLET PO SCH (10:43)
[2022-03-16 11:54] VITALS: BP 151/78
[2022-03-16] MEDS ORDERED: carvediloL 25 MG TABLET PO SCH (17:00)
[2022-03-18] MEDS ORDERED: ERGOCALCIFEROL 50,000 UNIT CAPSULE PO SCH (09:00)
== END 2022-03-16 12:37 | disposition home or self-care (01) ==
LOC: N.ED 09:58 → N.EDINP 13:10 → INTOOBSV 13:10 → N.TELEN 17:21
PROVIDERS: ADMIT Internal Medicine; ATTEND Internal Medicine